=== PATIENT | female | born 1975 | race African-American/Black ===

== ENCOUNTER 2017-04-05 10:32 | Emergency (ER) | payer SELFPAY ==
[~2017-04-05] VITALS: Ht 165.1 cm; Wt 75.0 kg
[2017-04-05] MEDS ORDERED: ACETAMINOPHEN 325MG TABLET PO ONE (15:00)
[2017-04-05 18:09] LABS: CLARITY URINE CLEAR (CLEAR); COLOR URINE YELLOW (YELLOW); GLUCOSE URINE NEGATIVE (NEGATIVE); KETONES URINE NEGATIVE (NEGATIVE); LEUKOCYTE ESTERASE URINE NEGATIVE (NEGATIVE); NITRITE URINE NEGATIVE (NEGATIVE); OCCULT BLOOD URINE NEGATIVE (NEGATIVE); PROTEIN URINE NEGATIVE (NEGATIVE); SPECIFIC GRAVITY URINE 1.026 (1.005-1.030); UROBILINOGEN URINE 0.2 E.U./dL (0.2-1.0)
[2017-04-05 18:16] LABS: *AMPHETAMINES SCREEN URINE NEGATIVE (NEGATIVE); *BARBITURATES SCREEN URINE NEGATIVE (NEGATIVE); *BENZODIAZEPINES SCREEN URINE NEGATIVE (NEGATIVE); *COCAINE SCREEN URINE NEGATIVE (NEGATIVE); CANNABINOID URINE SCREEN NEGATIVE (NEGATIVE); METHADONE URINE SCREEN NEGATIVE (NEGATIVE); OPIATES URINE SCREEN NEGATIVE (NEGATIVE); PHENCYCLIDINE URINE SCREEN NEGATIVE (NEGATIVE)
[2017-04-05 18:45] VITALS: BP 120/72
[2017-04-05] MEDS ORDERED: IBUPROFEN 600MG TABLET PO ONE (18:45)
== END 2017-04-05 18:45 | disposition home or self-care (01) ==
LOC: ER 14:47
DX: M43.17 Spondylolisthesis, lumbosacral region (principal); M19.90 Unspecified osteoarthritis, unspecified site; G31.89 Other specified degenerative diseases of nervous system
CPT/HCPCS: 72070; 72100; 80305; 81003; 81025; 99285

== ENCOUNTER 2021-01-13 13:09 | Emergency (ER) | payer MEDICAID ==
[~2021-01-13] VITALS: Ht 172.7 cm; Wt 80.0 kg
[2021-01-13] MEDS ORDERED: SODIUM CHLORIDE 0.9% 1,000 ML IV ONE (13:30)
[2021-01-13 14:03] LABS: CHLORIDE 102 mEq/L (98-107)
[2021-01-13 14:04] LABS: CLARITY URINE CLOUDY (CLEAR); COLOR URINE YELLOW (YELLOW); KETONES URINE TRACE (NEGATIVE); LEUKOCYTE ESTERASE URINE TRACE (NEGATIVE); NITRITE URINE NEGATIVE (NEGATIVE); OCCULT BLOOD URINE 3+ (NEGATIVE); PROTEIN URINE 1+ (NEGATIVE); SPECIFIC GRAVITY URINE 1.027 (1.005-1.030); UROBILINOGEN URINE 0.2 E.U./dL (0.2-1.0)
[2021-01-13 14:06] LABS: BASOPHILS % 0.3 % (0.0-2.0); EOSINOPHILS % 0.1 % (0.0-5.0); HEMATOCRIT. 38.4 % (36.0-48.0); HEMOGLOBIN. 12.6 g/dL (12.0-16.0); LYMPHOCYTES % 11.8 % (20.0-50.0); MONOCYTES % 8.2 % (2.0-8.0); NEUTROPHILS % 79.6 % (40.0-76.0); PLATELET 200 x1000/uL (130-400); RED BLOOD CELL COUNT 5.05 mill/uL (4.2-5.4); RED CELL DISTRIBUTION WIDTH 13.5 % (11.6-14.6)
[2021-01-13 18:01] VITALS: BP 116/70
== END 2021-01-13 18:04 | disposition home or self-care (01) ==
LOC: ER 13:09
DX: R53.83 Other fatigue (principal); Z87.440 Personal history of urinary (tract) infections
CPT/HCPCS: 36415; 80053; 81003; 81025; 85025; 93005; 99284; J7030; Z7610